=== PATIENT | male | born 1960 | race Caucasian/White ===

== ENCOUNTER 2017-12-08 08:57 | Day surgery (SDC) | payer OTHER, SELFPAY ==
[2017-12-08] MEDS ORDERED: PROPOFOL 40 ML ×2 (09:55)
[2017-12-08] MEDS ORDERED: LIDOCAINE 2% (SDV) 5 ML INJ ×4 (09:55→09:56)
== END 2017-12-08 12:54 | disposition home or self-care (01) ==
LOC: GIL 08:57
DX: K29.30 Chronic superficial gastritis without bleeding (principal); K44.9 Diaphragmatic hernia without obstruction or gangrene
CPT/HCPCS: 43239; 88305; 88312